=== PATIENT | male | born 1940 ===

== ENCOUNTER 2018-08-17 10:04 | Inpatient (IN) | payer OTHER ==
[~2018-08-17] VITALS: Ht 182.9 cm; Wt 5.0 kg
[2018-08-17] MEDS ORDERED: LEXAPRO20 MG (10:37)
[2018-08-17] MEDS ORDERED: COZAAR50 MG (10:37)
[2018-08-17] MEDS ORDERED: JANUVIA100 MG (10:37)
[2018-08-17] MEDS ORDERED: RISPERDAL0.25 MG (10:37)
[2018-08-17] MEDS ORDERED: PLAVIX75 MG (10:37)
[2018-08-17] MEDS ORDERED: EXELON1 EAC1 (10:38)
[2018-08-17] MEDS ORDERED: LORAZEPAM2 MG (10:38)
[2018-09-01] MEDS ORDERED: ASA-EC81 MG PO (09:59)
[2018-09-01] MEDS ORDERED: BRILINTA90 MG PO (09:59)
[2018-09-01] MEDS ORDERED: LIPITOR20 MG PO (09:59)
[2018-09-01] MEDS ORDERED: XOPENEX0.63 MG/3 IH (09:59)
[2018-09-01] MEDS ORDERED: LOSARTAN POTASS50 MG PO (09:59)
[2018-09-01] MEDS ORDERED: AMLODIPINE BESYL5 MG PO (09:59)
[2018-09-01] MEDS ORDERED: CARVEDILOL3.125 MG PO (09:59)
== END 2018-09-01 17:10 | disposition home or self-care (01) | DRG 208 ==
LOC: ER 10:04 → MEDJ 19:27 → ICU-2 19:27 → ICU 08-19 20:31 → MEDJ 08-23 14:30
PROVIDERS: Surgery; ADMIT Internal Medicine
PROC: 0BH17EZ Insertion of Endotracheal Airway into Trachea, Via Natural or Artificial Opening (ICD-10-PCS; 2018-08-17)
PROC: 5A1945Z Respiratory Ventilation, 24-96 Consecutive Hours (ICD-10-PCS; 2018-08-17)
PROC: B246ZZZ Ultrasonography of Right and Left Heart (ICD-10-PCS; 2018-08-17)
PROC: 3E0F7GC Introduction of Other Therapeutic Substance into Respiratory Tract, Via Natural or Artificial Opening (ICD-10-PCS; 2018-08-17)
PROC: 4A033R1 Measurement of Arterial Saturation, Peripheral, Percutaneous Approach (ICD-10-PCS; 2018-08-17)
PROC: 0DH67UZ Insertion of Feeding Device into Stomach, Via Natural or Artificial Opening (ICD-10-PCS; 2018-08-19)
PROC: 3E0G76Z Introduction of Nutritional Substance into Upper GI, Via Natural or Artificial Opening (ICD-10-PCS; 2018-08-19)
PROC: 05HB33Z Insertion of Infusion Device into Right Basilic Vein, Percutaneous Approach (ICD-10-PCS; 2018-08-19)
PROC: 8E0ZXY6 Isolation (ICD-10-PCS; 2018-08-20)
PROC: 30233N1 Transfusion of Nonautologous Red Blood Cells into Peripheral Vein, Percutaneous Approach (ICD-10-PCS; 2018-08-20)
PROC: 4A12X4Z Monitoring of Cardiac Electrical Activity, External Approach (ICD-10-PCS; 2018-08-23)
PROC: 3E0G76Z Introduction of Nutritional Substance into Upper GI, Via Natural or Artificial Opening (ICD-10-PCS; 2018-08-28)
PROC: 0DH63UZ Insertion of Feeding Device into Stomach, Percutaneous Approach (ICD-10-PCS; principal; 2018-08-28 13:45)
DX: J69.0 Pneumonitis due to inhalation of food and vomit (principal); J96.01 Acute respiratory failure with hypoxia; A41.9 Sepsis, unspecified organism; I21.4 Non-ST elevation (NSTEMI) myocardial infarction; B37.1 Pulmonary candidiasis; N17.8 Other acute kidney failure; N39.0 Urinary tract infection, site not specified; J15.5 Pneumonia due to Escherichia coli; Z74.01 Bed confinement status; I95.89 Other hypotension; I25.10 Atherosclerotic heart disease of native coronary artery without angina pectoris; F03.90 Unspecified dementia, unspecified severity, without behavioral disturbance, psychotic disturbance, mood disturbance, and anxiety; Z66 Do not resuscitate; B96.4 Proteus (mirabilis) (morganii) as the cause of diseases classified elsewhere; B96.89 Other specified bacterial agents as the cause of diseases classified elsewhere; I13.10 Hypertensive heart and chronic kidney disease without heart failure, with stage 1 through stage 4 chronic kidney disease, or unspecified chronic kidney disease; N18.9 Chronic kidney disease, unspecified; R13.12 Dysphagia, oropharyngeal phase; D64.89 Other specified anemias

== ENCOUNTER 2019-09-12 18:33 | Inpatient (IN) | payer OTHER ==
[~2019-09-12] VITALS: Ht 167.6 cm; Wt 52.2 kg
[~2019-09-12 18:33] MED LIST: AMLODIPINE BESYL5 MG PO; ASA-EC81 MG PO; BRILINTA90 MG PO; CARVEDILOL3.125 MG PO; COZAAR50 MG; EXELON1 EAC1; JANUVIA100 MG; LEXAPRO20 MG; LIPITOR20 MG PO; LORAZEPAM2 MG; LOSARTAN POTASS50 MG PO; PLAVIX75 MG; RISPERDAL0.25 MG; XOPENEX0.63 MG/3 IH
[2019-09-12] MEDS ORDERED: NEURONTIN300 MG (18:53)
[2019-09-12] MEDS ORDERED: MAGNESIUM250 MG (18:53)
[2019-09-12] MEDS ORDERED: AXID (18:54)
== END 2019-09-21 18:51 | disposition home or self-care (01) | DRG 872 ==
LOC: ER 18:33 → SEC-K 09-13 11:55 → MEDI 09-13 11:55 → SURG 09-18 18:57
PROVIDERS: ADMIT Internal Medicine; ATTEND Internal Medicine
PROC: 8E0ZXY6 Isolation (ICD-10-PCS; principal; 2019-09-15)
PROC: 0D20XUZ Change Feeding Device in Upper Intestinal Tract, External Approach (ICD-10-PCS; 2019-09-15)
DX: A41.9 Sepsis, unspecified organism (principal); N39.0 Urinary tract infection, site not specified; K94.23 Gastrostomy malfunction; G30.9 Alzheimer's disease, unspecified; F02.80 Dementia in other diseases classified elsewhere, unspecified severity, without behavioral disturbance, psychotic disturbance, mood disturbance, and anxiety; J44.9 Chronic obstructive pulmonary disease, unspecified; I11.0 Hypertensive heart disease with heart failure; I50.9 Heart failure, unspecified; Z74.01 Bed confinement status; R13.10 Dysphagia, unspecified; Z66 Do not resuscitate; I25.10 Atherosclerotic heart disease of native coronary artery without angina pectoris; B96.20 Unspecified Escherichia coli [E. coli] as the cause of diseases classified elsewhere; Y83.8 Other surgical procedures as the cause of abnormal reaction of the patient, or of later complication, without mention of misadventure at the time of the procedure